=== PATIENT | male | born 1950 | race Caucasian/White ===

== ENCOUNTER 2017-11-22 13:58 | Emergency (ER) | payer OTHER ==
--- NOTE | 2017-11-22 14:22 | EDPHY ---
H & P Stated Complaint: L CALF PAIN AND SWELLING, HIP FX 4 WEEKS [employer] - Personal History Current Tetanus Diphtheria and Acellular Pertussis (TDAP): Yes - Medical/Surgical History Other PMH: L HIP FX, ORTHO SURGERIES - Social History Smoking Status: Never smoked Time Seen by Provider: 11/22/17 14:11 HPI/ROS: CHIEF COMPLAINT: Left calf swelling and pain HISTORY OF PRESENT ILLNESS: 67-year-old male presents with left calf swelling and pain. He sustained a left acetabular fracture 1 month ago and has been non weight-bearing since then. Over the past few days he has had vague discomfort in his lower thigh and calf. Yesterday he developed swelling and mild pain in the left calf. Continues with same sx today. He was sent here to rule out DVT. He takes a baby aspirin daily. No prior history of DVT/PE. No SOB/cp. REVIEW OF SYSTEMS: complete 10 point ROS negative except at noted in the HPI (Marsisa Matt) - Physical Exam Exam: General Appearance: Alert, pleasant Eyes: Pupils equal and round, no conjunctival pallor ENT, Mouth: Mucous membranes moist Neck: Normal inspection Respiratory: Lungs are clear to auscultation Cardiovascular: Regular rate and rhythm Gastrointestinal: Abdomen is soft and nontender Neurological: A&O, nonfocal exam Skin: Warm and dry Extremities: Left thigh-ecchymosis along the lateral aspect of the thigh, left calf tenderness and swelling Vascular: 2+ dorsalis pedis pulses Psychiatric: Mood and affect normal (Marissa Matt) Constitutional: Initial Vital Signs Temperature (C) 36.4 C 11/22/17 14:06 Heart Rate 66 11/22/17 14:06 Respiratory Rate 16 11/22/17 14:06 Blood Pressure 132/90 H 11/22/17 14:06 O2 Sat (%) 97 11/22/17 14:06 O2 Delivery Mode Room Air Allergies/Adverse Reactions: Penicillins Allergy (Verified 11/22/17 14:06) Home Medications: Medication Instructions Recorded Apixaban [Eliquis] 10 mg PO BID #14 tab 11/22/17 Aspirin 11/22/17 Medical Decision Making - Diagnostics Imaging Results: Ultrasound reviewed by me and discussed with Dr. Wills shows acute DVT from the left knee to the calf (Phong Farias) ED Course/Re-evaluation: Patient was signed out to me at 3:[address] Matt. I saw the patient at 3:20 p.m.. Patient and I discussed imaging study results, treatment plan including criteria for return importance of follow-up and further evaluation. He expresses understanding and agree (Phong Farias) This pt presents with LLE pain/swelling, concerning for DVT. LLE sono ordered. 3pm: signed over to Dr. Farias at shift change. sono pending. (Marissa Matt) Differential Diagnosis: includes though not limited to DVT, cellulitis, fracture, CHF, ARF. (Marissa Matt) - Data Points Laboratory Results: Laboratory Results 11/22/17 14:30 11/22/17 14:30 Medications Given: Discontinued Medications Apixaban (Eliquis) 10 mg PO EDNOW ONE Stop: 11/22/17 15:32 Last Admin: 11/22/17 15:57 Dose: 10 mg Departure - Departure Disposition: Home, Routine, Self-Care Clinical Impression: DVT (deep venous thrombosis) Condition: Good Instructions: Apixaban (By mouth), Deep Vein Thrombosis (ED) Additional Instructions: Keep leg elevated as much as possible next 2-3 days. Eliquis 1 pill twice daily for the next 7 days. Follow up with Dr. Miller this week for further prescription and discussion of DVT. Return for worsening symptoms. Wear a helmet for all dangerous activities May continue regular medications Referrals: Sandra Miller MD [Primary Care Provider] - 2-3 days, call for appt. Prescriptions: Apixaban [Eliquis] 10 mg PO BID #14 tab
[2017-11-22 14:38] LABS: PLATELET COUNT 152 10^3/uL (150-400)
[2017-11-22 14:49] LABS: INR 0.96 (0.83-1.16)
[2017-11-22] MEDS ORDERED: APIXABAN 5 MG TAB PO ONE (15:31)
[2017-11-22 15:45] VITALS: BP 125/76
== END 2017-11-22 16:06 | disposition home or self-care (01) ==
DX: I82.402 Acute embolism and thrombosis of unspecified deep veins of left lower extremity (principal); Z79.82 Long term (current) use of aspirin

== ENCOUNTER → 2018-01-28 | Outpatient (CLI) | payer OTHER | LOC: FIMAGING 08:18 | PROVIDERS: ATTEND Internal Medicine Hematology & Oncology | DX: I82.432 Acute embolism and thrombosis of left popliteal vein (principal) ==

== ENCOUNTER → 2018-03-02 | Outpatient (CLI) | payer OTHER | LOC: FIMAGING 08:31 | PROVIDERS: ATTEND Internal Medicine Hematology & Oncology | DX: Z09 Encounter for follow-up examination after completed treatment for conditions other than malignant neoplasm (principal); Z86.718 Personal history of other venous thrombosis and embolism; Z79.01 Long term (current) use of anticoagulants ==